=== PATIENT | male | born 1965 | race Caucasian/White ===

== ENCOUNTER 2024-03-26 15:35 | Outpatient (CLI) | payer OTHER ==
[2024-03-26 16:28] LABS: #Basophils 0.08 10x3/uL (0.0-0.2); #Eosinphils 0.19 10x3/uL (0.0-0.5); #Monocytes 0.67 10x3/uL (0.0-1.1); #Neutrophils 7.14 10x3/uL (1.5-8.4); %Basophils 0.8 % (0.0-2.0); %Eosinophils 1.8 % (0.0-6.0); %Lymphocytes 23.6 % (18.0-47.0); %Monocytes 6.3 % (0.0-10.0); %Neutrophils 67.1 % (40.0-75.0); Hemoglobin 16.2 g/dL (13.5-17.5); Mean Corpuscular HGB CONC 34.5 g/dL (32.0-36.0); Mean Corpuscular Hemoglobin 32.8 pg (27.0-33.0); Mean Corpuscular Volume 95.1 fL (81.2-95.1); Platelet Count 277 10x3/uL (150-450); RBC Distribution Width 12.8 % (11.5-14.5); Red Blood Cell (RBC) Count 4.94 10x6/uL (4.32-5.72); White Blood Cell (WBC) Count 10.6 10x3/uL (3.5-10.5)
[2024-03-26 16:36] LABS: Anion Gap 12 mmol/L (10-20); BUN (Urea Nitrogen) 15 mg/dL (8.4-25.7); Calc. Creatinine Clearance 0 mL/min (70-130); Calcium 8.9 mg/dL (7.8-10.44); Carbon Dioxide 26 mmol/L (22-29); Chloride 109 mmol/L (98-107); Estimated GFR 86; Glucose 102 mg/dL (70-105); Potassium 4.2 mmol/L (3.5-5.1); Sodium 143 mmol/L (136-145)
== END 2024-03-26 15:36 | disposition home or self-care (01) ==
LOC: CSHLAB 15:35
PROVIDERS: ATTEND Surgery
DX: Z01.812 Encounter for preprocedural laboratory examination (principal); K43.9 Ventral hernia without obstruction or gangrene
CPT/HCPCS: 80048; 85025

== ENCOUNTER 2024-03-30 08:46 | Day surgery (SDC) | payer OTHER ==
[2024-03-26 16:11] VITALS: BMI 36.9
[2024-03-30] MEDS ORDERED: Bupivacaine/Epinephrine 0.25% 30 ML VIAL ONE ×2 (10:06→12:00)
[2024-03-30] MEDS ORDERED: Fentanyl 250 MCG/5 ML VIAL ONE (10:49)
[2024-03-30] MEDS ORDERED: PROPOFOL 20 ML ONE (10:50)
[2024-03-30] MEDS ORDERED: Lidocaine 1% PF 5 ML VIAL ONE (10:50)
[2024-03-30] MEDS ORDERED: Rocuronium Bromide 10 MG/ML (10ML VIAL) ONE (10:51)
[2024-03-30] MEDS ORDERED: CEFAZOLIN 2 GM VIAL ONE (11:00)
[2024-03-30] MEDS ORDERED: Ondansetron PF 4 MG/2 ML Vial ONE (12:10)
[2024-03-30] MEDS ORDERED: Dexamethasone 20 MG/5 ML VIAL ONE (12:10)
[2024-03-30] MEDS ORDERED: SUGAMMADEX SODIUM 200 MG/2 ML VIAL ONE (12:11)
[2024-03-30] MEDS ORDERED: Ketorolac Tromethamine 30 MG (1 mL) VIAL ONE (12:39)
[2024-03-30] MEDS ORDERED: HYDROcodone/Acetaminophen 5/325 mg Tablet ONE (14:11)
== END 2024-03-30 14:30 | disposition home or self-care (01) ==
LOC: CSHSDC 08:46
PROVIDERS: ATTEND Surgery
DX: K43.9 Ventral hernia without obstruction or gangrene (principal); I10 Essential (primary) hypertension; Z79.899 Other long term (current) drug therapy
CPT/HCPCS: C1781; J1100; J1885; J2405; J2704; J3010